=== PATIENT | male | born 1930 | race Caucasian/White ===

== ENCOUNTER 2016-10-05 16:30 | Inpatient (IN) | payer MEDICARE, OTHER ==
[~2016-10-05] VITALS: Ht 172.7 cm; Wt 73.2 kg
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
[~2016-10-05 16:30] MED LIST: APRESOLINE25 MG PO; ASPIRIN81 MG PO; ATENOLOL50 MG PO; EXELON4.6 MG/24 TD; GLUCOTROL10 M1; LIPITOR10 MG PO; SIMVASTATIN40 MG; ZESTRIL5 MG PO
[2016-10-05 16:53] VITALS: BP 149/87
[2016-10-05 17:32] LABS: BILIRUBIN NEGATIVE (NEGATIVE); BLOOD 2+ (NEGATIVE); CLARITY SL CLOUDY (CLEAR); COLOR YELLOW (YELLOW); GLUCOSE NEGATIVE (NEGATIVE); KETONE NEGATIVE (NEGATIVE); LEUKO ESTERASE 3+ (NEGATIVE); NITRITE POSITIVE (NEGATIVE); PROTEIN 1+ (NEGATIVE); UROBILINOGEN 0.2 E.U./dl (0.2-1.0)
[2016-10-05 17:36] LABS: BASO % 0.3 % (0.0-1.0); EOS # 0.1 10*3/uL (0.0-0.4); EOS % 0.9 % (1.0-4.0); HEMATOCRIT 42.2 % (42.0-52.0); HEMOGLOBIN 13.9 g/dl (14.0-18.0); LYMPH # 1.3 10*3/uL (1.3-4.4); LYMPH % 22.1 % (27.0-41.0); MEAN CORPUSCULAR HGB 30.6 pg (27.0-31.0); MEAN CORPUSCULAR HGB CONC 32.9 g/dl (33.0-37.0); MEAN PLATELET VOLUME 9.8 fl (9.6-12.3); MONO # 0.4 10*3/uL (0.1-1.0); MONO % 6.5 % (3.0-9.0); NEUT # 4.1 10*3/uL (2.3-7.9); PLATELET COUNT AUTOMATED 167 10*3/uL (130-400); RED BLOOD COUNT 4.54 10*6/uL (4.50-5.90); RED CELL DISTRI WIDTH 13.8 % (0-14.5); WHITE BLOOD COUNT 5.9 10*3/uL (4.8-10.8)
[2016-10-05 17:45] LABS: BACTERIA 2+; EPITHELIAL CELLS 0-2; URINE REFLEX COMMENT YES (NO)
[2016-10-05 17:54] LABS: ALBUMIN 3.3 gm/dl (3.1-4.5); BILIRUBIN, TOTAL 0.3 mg/dl (0.2-1.0); POTASSIUM 4.5 mmol/L (3.5-5.1); TOTAL PROTEIN 6.7 gm/dL (6.4-8.2)
[2016-10-05 20:25] VITALS: BP 136/74
[2016-10-05 20:30] VITALS: BP 136/74
[2016-10-06] VITALS: BP 109/68
[2016-10-06 06:29] LABS: BASO % 0.4 % (0.0-1.0); EOS # 0.1 10*3/uL (0.0-0.4); HEMATOCRIT 41.5 % (42.0-52.0); HEMOGLOBIN 13.5 g/dl (14.0-18.0); LYMPH # 1.5 10*3/uL (1.3-4.4); LYMPH % 30.7 % (27.0-41.0); MEAN CELL VOLUME 93.7 fl (80.0-94.0); MEAN CORPUSCULAR HGB 30.5 pg (27.0-31.0); MEAN CORPUSCULAR HGB CONC 32.5 g/dl (33.0-37.0); MEAN PLATELET VOLUME 9.7 fl (9.6-12.3); MONO # 0.4 10*3/uL (0.1-1.0); MONO % 8.7 % (3.0-9.0); NEUT # 2.7 10*3/uL (2.3-7.9); PLATELET COUNT AUTOMATED 160 10*3/uL (130-400); RED BLOOD COUNT 4.43 10*6/uL (4.50-5.90); RED CELL DISTRI WIDTH 13.8 % (0-14.5); WHITE BLOOD COUNT 4.7 10*3/uL (4.8-10.8)
[2016-10-06 07:00] LABS: MAGNESIUM 1.9 mg/dL (1.5-2.1); PHOSPHOROUS 2.8 mg/dL (2.5-4.9); POTASSIUM 4.2 mmol/L (3.5-5.1)
[2016-10-06 08:00] VITALS: BP 136/70
[2016-10-06 12:00] VITALS: BP 150/53
[2016-10-06 16:00] VITALS: BP 120/65
[2016-10-06 20:00] VITALS: BP 102/60
[2016-10-07 01:36] VITALS: BP 127/83
[2016-10-07 08:00] VITALS: BP 106/62
[2016-10-07 10:55] LABS: VITAMIN D, 25-HYDROXY 26.6 ng/mL (30-100)
[2016-10-07 12:00] VITALS: BP 110/76
[2016-10-07 16:00] VITALS: BP 117/57
[2016-10-07 20:00] VITALS: BP 84/55
[2016-10-08] VITALS: BP 115/83
[2016-10-08 07:06] LABS: BASO % 0.4 % (0.0-1.0); EOS # 0.3 10*3/uL (0.0-0.4); EOS % 5.4 % (1.0-4.0); HEMATOCRIT 40.6 % (42.0-52.0); HEMOGLOBIN 13.1 g/dl (14.0-18.0); LYMPH # 1.3 10*3/uL (1.3-4.4); LYMPH % 27.2 % (27.0-41.0); MEAN CELL VOLUME 93.8 fl (80.0-94.0); MEAN CORPUSCULAR HGB 30.3 pg (27.0-31.0); MEAN CORPUSCULAR HGB CONC 32.3 g/dl (33.0-37.0); MONO # 0.3 10*3/uL (0.1-1.0); MONO % 7.1 % (3.0-9.0); NEUT # 2.8 10*3/uL (2.3-7.9); NEUT % 59.7 % (47.0-73.0); PLATELET COUNT AUTOMATED 152 10*3/uL (130-400); RED BLOOD COUNT 4.33 10*6/uL (4.50-5.90); RED CELL DISTRI WIDTH 13.7 % (0-14.5); WHITE BLOOD COUNT 4.7 10*3/uL (4.8-10.8)
[2016-10-08 07:39] LABS: POTASSIUM 4.3 mmol/L (3.5-5.1)
[2016-10-08 08:00] VITALS: BP 128/60
[2016-10-08] MEDS ORDERED: CIPRO500 MG PO (10:16)
== END 2016-10-08 11:00 | disposition home health service (06) | DRG 698 ==
LOC: ED 16:30 → 4E 18:35 → EDHOLD 18:35 → 4E 18:58
PROVIDERS: Hospitalist; Internal Medicine; Nurse Practitioner Family; Psychiatry & Neurology Psychiatry
DX: T83.511A Infection and inflammatory reaction due to indwelling urethral catheter, initial encounter (principal); G93.41 Metabolic encephalopathy; N17.9 Acute kidney failure, unspecified; B96.1 Klebsiella pneumoniae [K. pneumoniae] as the cause of diseases classified elsewhere; F03.90 Unspecified dementia, unspecified severity, without behavioral disturbance, psychotic disturbance, mood disturbance, and anxiety; I10 Essential (primary) hypertension; E11.9 Type 2 diabetes mellitus without complications; F23 Brief psychotic disorder; Y83.8 Other surgical procedures as the cause of abnormal reaction of the patient, or of later complication, without mention of misadventure at the time of the procedure; Z87.891 Personal history of nicotine dependence; Y92.89 Other specified places as the place of occurrence of the external cause; Z79.899 Other long term (current) drug therapy; Z87.828 Personal history of other (healed) physical injury and trauma; Z90.49 Acquired absence of other specified parts of digestive tract; Z88.8 Allergy status to other drugs, medicaments and biological substances

== ENCOUNTER 2016-10-08 11:04 | Inpatient (IN) | payer MEDICARE, OTHER ==
[~2016-10-08] VITALS: Ht 172.7 cm; Wt 73.0 kg
--- NOTE | ~2016-10-08 | PR ---
[place], [place] PROGRESS NOTE [id number] UN[facility] #: [id number] ROOM: 311 DOCTOR: MYCHAL PONCE MD BIRTHDATE: [birth year] DOS: 10/16/2016 CHIEF COMPLAINT: "I can't get this done out of here, what do I do." SUMMARY OF THE VISIT: The patient was interviewed as he sat in the group therapy room in a Lyla chair with a tray table on. He was fixated on attempting to get the tray off of the chair and was repeatedly shaking it. He was, however, in a pleasant mood and as I approached and engaged him, he laughed several times about trying to remove the tray. He seemed in good spirits and he did not seem to be excessively agitated. Nurses report that overall there has been a steady trend in improvement in his overall disposition as such that he does redirect more readily. He is tolerating the current medication regimen well without any apparent side effects. There is no sedation or somnolence noted. MENTAL STATUS: He is alert and oriented to self, possibly place, certainly not time. Mood does seem to be trending towards euthymia. Affect is much more appropriate. There are no symptoms of heather or hypomania. There are no overt auditory or visual hallucinations. No delusions are present. Short-term memory is poor. Otherwise, he is intact. PLAN: His last valproic acid level was high therapeutic at 93.4. I will recheck a valproic acid level in the a.m. tomorrow to ensure that the level is not corrected above therapeutic. Continue to maintain the current psychotropic regimen at this point, maintain individual and group activities, returning him to the least restrictive environment when psychiatrically stable. MYCHAL PONCE MD CM:PNTRANS 1 5 MYCHAL PONCE MD 10/16/16906 interface
--- NOTE | ~2016-10-08 | PR ---
[place], [place] PROGRESS NOTE NAME: RAHEEM SONI UNIT #: [id number] ROOM: 311 DOCTOR: MYCHAL PONCE MD BIRTHDATE: [birth year] DOS: 10/17/2016 CHIEF COMPLAINT: "I guess I am ready for breakfast." SUMMARY OF THE VISIT: The patient was interviewed as he was propelling his wheelchair in the thomas. He smiled as I approached and went to shake my hand. He was much more pleasant in conversation, although he continues to be grossly confused and has a hard time stringing in entire sentence together without trailing into nonsensical gibberish. Nurses report, he has been much more pleasant and redirectable. MENTAL STATUS: He is alert and oriented to person, possibly place, certainly not time. Mood does seem to be trending towards euthymia. Affect is more appropriate. His responses tend to be short and simple at times inappropriate to the questions asked of him. There is no hypomania or heather. There are no overt auditory or visual hallucinations noted. No voice delusions or paranoia. Short-term memory is exceedingly poor. PLAN: I will maintain his current psychotropic regimen. His valproic acid level obtained this morning is therapeutic at 89.3, so I will maintain the Depakote level as is. Maintain the current dose of Exelon and Namenda. Continue to engage in individual and calderon milieu activity. Finalizing discharge plans and returning to the least restrictive environment when psychiatrically stable. MYCHAL PONCE MD CM:PNTRANS [id number] MYCHAL PONCE MD 10/17/16 0906 interface
--- NOTE | ~2016-10-08 | PR ---
[place], [place] PROGRESS NOTE NAME: RAHEEM SONI UNIT #: [id number] ROOM: 311 DOCTOR: KEEGAN SINGLETON BIRTHDATE: [birth year] DOS: 10/14/2016 SUMMARY OF VISIT: The patient was assessed in the dining room where he was banging on the tray on his Lyla chair. Nursing notes that the afternoon Vistaril that I had ordered was helping with the , but that he did require Ativan last night because he became agitated and he continues to be agitated this morning. MENTAL STATUS: He is alert and oriented to name only. I had discontinued his Namenda couple days ago because I thought maybe it was contributing to some increased confusion, but he continues to talk nonsensically. His valproic acid level yesterday was 93.4, so it is in the therapeutic range. PLAN: I will add Vistaril q.a.m. dose of 50 mg to see if I can take the edge off there without causing sedation. There is no sedation on this gentleman right now and let us see how he responds to the Vistaril and I can adjust accordingly. PAN SINGLETON CNP CM:PNTRANS [id number] KEEGAN SINGLETON 10/14/16 1220 interface
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
--- NOTE | ~2016-10-08 | PR ---
[place], [place] PROGRESS NOTE NAME: RAHEEM SONI UNIT #: [id number] ROOM: 311 DOCTOR: KEEGAN SINGLETON BIRTHDATE: [birth year] DOS: 10/15/2016 SUMMARY OF VISIT: The patient was assessed in the dining room where he was sitting quietly and comfortably in the Lyla chair in front of the TV. He smiled, still talked gibberish, but no agitation, no banging of the tray, no trying to get out of the Lyla chair. Nursing notes since adding the a.m. dose of the Vistaril yesterday, the patient has been much better. He still has issues in the afternoon, but he does have an afternoon dose of Vistaril of help to him. MENTAL STATUS: He is alert to name only. No overt signs of auditory or visual hallucinations. Since he is talking gibberish, I do not know if he is actually having delusions or paranoia. PLAN: I want to continue with the a.m. dose, monitor for sedation and go from there. PAN SINGLETON CNP CM:PNTRANS [id number] KEEGAN SINGLETON 10/16/16 0114 interface
--- NOTE | ~2016-10-08 | PN ---
[place], [place] PROGRESS NOTE [id number] UN[facility] #: [id number] ROOM: 311 DOCTOR: MYCHAL PONCE MD BIRTHDATE: [birth year] DATE: 10/13/16 INTERVAL NOTE CHIEF COMPLAINT: "Morning." SUMMARY OF THE VISIT: The patient was interviewed or attempted to be interviewed as he was resting in a Lyla chair in the dining area. He was rather somnolent on approach and I was able to awaken him enough for him to mouth the words morning, but he nodded back off into sleep thereafter. Nurses report that he had a horrible night, sundowning horribly, becoming verbally and physically aggressive requiring 2 p.r.n. interventions with intramuscular Ativan. The first intramuscular injection did little to nothing, but by the time he had the 2nd, it did decrease his agitation. Nurses report that he also tends to respond more favorably to women than he does to men and with men, he becomes much more confrontational and verbally and physically combative. This morning, my examination is limited due to the somnolence left over from the Ativan that he received last night. MENTAL STATUS: It is limited due to the fact that he is somewhat somnolent. He is at least alert and oriented to self. I could not assess much further because of that. PLAN: His valproic acid level is therapeutic at 93.4, so I will maintain the current level. I will go ahead and increase Exelon patch from 9.5 mg daily to 13.3 mg daily. His Namenda has been discontinued due to the possibility of it causing confusion, so I will continue to monitor for improvement. We will monitor to see if his sundowning continues to be problematic and if it does, we will address this accordingly with a medicine at night. He may require atypical antipsychotic to decrease the overall combativeness and at this point, I would strongly recommend the family that he is not placed at home, but rather placed into a long-term care facility to further monitor and assess his behavior. We will continue to engage him in individual and calderon milieu activity, returning to the least restrictive environment when stable. MYCHAL PONCE MD CM:PNTRANS [id number] 1415 MYCHAL PONCE MD 10/16/16 1416 HARLEY MATA MIS.R
--- NOTE | ~2016-10-08 | PN ---
[place], [place] PROGRESS NOTE NAME: RAHEEM SONI UNIT #: [id number] ROOM: 311 DOCTOR: KEEGAN SINGLETON BIRTHDATE: [birth year] DATE: 10/11/16 CHIEF COMPLAINT: "Good morning." SUMMARY OF VISIT: The patient was interviewed in the dining room, where he has finished up breakfast. He was fairly nonsensical, jumping from conversation to conversation. His responses to my questions were inappropriate as far as having nothing to do with the questions I asked. He did have an episode of severe sundowning last night around 5:30. Ativan seems to be ineffective, eventually requiring I believe a Geodon injection. MENTAL STATUS: He is alert and oriented to self only, I do not think place, time anything else. I do not think he is having overt signs of auditory or visual hallucinations, maybe some delusions, no paranoia, very poor short term memory. PLAN: He was started on Namenda yesterday. I am going to leave this alone and the Exelon alone. The goal would be to quickly titrate this up to the maximum dose. He is currently on Depakote and has not been on long enough prior. Order a valproic acid level tomorrow to be evaluated over the weekend. I am going to [facility] if [facility]il can head off the sundowning and have a better effect in his system instead of the Ativan. We can try to redirect as much as possible. It does appear that he has urinary tract infection and that the hospitalists are treating that. We will continue to try to engage in individual and calderon milieu therapy and discharge once stable. KEEGAN SINGLETON CM:PNTRANS 46 KEEGAN SINGLETON 10/16/161446 HARLEY MATA.MAGGIER
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
--- NOTE | ~2016-10-08 | PR ---
[place], [place] PROGRESS NOTE NAME: RAHEEM SONI UNIT #: [id number] ROOM: 311 DOCTOR: KEEGAN SINGLETON BIRTHDATE: [birth year] DOS: 10/12/2016 SUMMARY OF VISIT: The patient was assessed in the dining room. He is much more alert; however, he seems much more confused. He is alert, energetic, good eye contact. From a medical standpoint, seems clear, but he was actually talking gibberish to me. Nurses stated that he has refusing a.m. care, a.m. meds. He could not track my conversation even respond appropriately to my questions with simple yes or no's. MENTAL STATUS: He is alert and oriented, I think to self, nothing else. I did discuss the situation with Dr. Tinoco. The Namenda was just started on the and a few rare cases we have seen increased confusion with the use of Namenda so we are going to pull away on that right now. PLAN: I am going to discontinue the Namenda. I am going to check a valproic acid level tomorrow. Let see how he does over the next 24 hours and then we can go from there. PAN SINGLETON CNP CM:PNTRANS [phone] KEEGAN SINGLETON 10/12/16 1217 interface
--- NOTE | ~2016-10-08 | PN ---
[place], [place] PROGRESS NOTE NAME: RAHEEM SONI UNIT #: [id number] ROOM: 311 DOCTOR: KEEGAN SINGLETON BIRTHDATE: [birth year] DATE: 10/11/16 CHIEF COMPLAINT: "Good morning." SUMMARY OF VISIT: The patient was interviewed in the dining room, where he has finished up breakfast. He was fairly nonsensical, jumping from conversation to conversation. His responses to my questions were inappropriate as far as having nothing to do with the questions I asked. He did have an episode of severe sundowning last night around 5:30. Ativan seems to be ineffective, eventually requiring I believe a Geodon injection. MENTAL STATUS: He is alert and oriented to self only, I do not think place, time anything else. I do not think he is having overt signs of auditory or visual hallucinations, maybe some delusions, no paranoia, very poor short term memory. PLAN: He was started on Namenda yesterday. I am going to leave this alone and the Exelon alone. The goal would be to quickly titrate this up to the maximum dose. He is currently on Depakote and has not been on long enough prior. Order a valproic acid level tomorrow to be evaluated over the weekend. I am going to add [facility] if the Vistaril can head off the sundowning and have a better effect in his system instead of the Ativan. We can try to redirect as much as possible. It does appear that he has urinary tract infection and that the hospitalists are treating that. We will continue to try to engage in individual and calderon milieu therapy and discharge once stable. KEEGAN SINGLETON CM:PNTRANS 1448 KEEGAN SINGLETON 10/16/16 1449 HARLEY MATA.MAGGIER
--- NOTE | ~2016-10-08 | PR ---
[place], [place] PROGRESS NOTE NAME: RAHEEM SONI UNIT #: [id number] ROOM: 311 DOCTOR: MYCHAL PONCE MD BIRTHDATE: [birth year] DOS: 10/10/2016 CHIEF COMPLAINT: "I want to get up for breakfast." SUMMARY OF THE VISIT: The patient was interviewed or attempted to be interviewed as he was getting out of bed with the nursing students assistance. He did engage briefly in conversation telling me he wanted to get up after that as I attempted to reengage him in conversation, he was most fixated on attempting to stand and utilizing their assistance in order to get up and he did not respond to me further. Nurses report that he continues to exhibit some mood lability worse in the late afternoon or early evening hours, but does seem to be slowly trending toward improvement. MENTAL STATUS: Limited by his lack of cooperation. He is at least oriented to self. It is unclear if he realizes he is in the hospital and he is certainly not oriented to time. Mood this morning seems to be still somewhat labile and affect at times is inappropriate. His responses tended to be short and terse. Overall, there is no hypomania or heather. There are no overt auditory or visual hallucinations noted. Memory; For short term events remains poor. PLAN: I will maintain his current psychotropic regimen adding Namenda 5 mg daily to augment the effectiveness of the Exelon patch. Maintain the Depakote for mood stability and to decrease impulsivity, engage in individual and calderon milieu activity with the ultimate plan to return to the least restrictive environment when stable. MYCHAL PONCE MD CM:PNTRANS 1 1 MYCHAL PONCE MD 10/10/16901 interface
[~2016-10-08 11:04] MED LIST changes: +CIPRO500 MG PO
[2016-10-08 12:38] VITALS: BP 116/61
[2016-10-08 20:00] VITALS: BP 124/66
[2016-10-09 06:54] LABS: ALBUMIN 3.4 gm/dl (3.1-4.5); BILIRUBIN, TOTAL 0.4 mg/dl (0.2-1.0); POTASSIUM 4.2 mmol/L (3.5-5.1); TOTAL PROTEIN 6.9 gm/dL (6.4-8.2)
[2016-10-09 07:00] LABS: THYROID STIM HORMONE (HS) 2.32 uIU/ml (0.358-4.75)
[2016-10-09 07:24] VITALS: BP 149/79
[2016-10-09 20:00] VITALS: BP 111/69
[2016-10-10 07:58] VITALS: BP 104/56
[2016-10-10 20:00] VITALS: BP 135/83
[2016-10-11 07:53] VITALS: BP 104/70
[2016-10-11 19:48] VITALS: BP 111/58
[2016-10-12 07:36] VITALS: BP 116/72
[2016-10-12 20:00] VITALS: BP 118/58
[2016-10-13 08:00] VITALS: BP 112/82
[2016-10-13 20:00] VITALS: BP 126/69
[2016-10-14 07:38] VITALS: BP 136/83
[2016-10-14 21:46] VITALS: BP 123/74
[2016-10-15 07:50] VITALS: BP 125/77
[2016-10-15 19:59] VITALS: BP 153/73
[2016-10-16 07:49] VITALS: BP 128/58
[2016-10-16 19:49] VITALS: BP 112/54
[2016-10-17 20:00] VITALS: BP 123/74
[2016-10-18] MEDS ORDERED: DIVALPROEX SOD250 MG PO (07:54)
[2016-10-18] MEDS ORDERED: EXELON13.3 MG/21 T (07:54)
[2016-10-18] MEDS ORDERED: HYDROXYZINE PAM25 M1 PO ×2 (07:54)
[2016-10-18] MEDS ORDERED: DIVALPROEX SOD500 MG PO (07:54)
[2016-10-18 08:08] VITALS: BP 118/50
== END 2016-10-18 10:00 | disposition other institution (70) | DRG 56 ==
LOC: 3N 11:04
PROVIDERS: Nurse Practitioner Adult Health
DX: G30.1 Alzheimer's disease with late onset (principal); G93.41 Metabolic encephalopathy; E87.0 Hyperosmolality and hypernatremia; E11.65 Type 2 diabetes mellitus with hyperglycemia; F23 Brief psychotic disorder; N30.00 Acute cystitis without hematuria; F02.80 Dementia in other diseases classified elsewhere, unspecified severity, without behavioral disturbance, psychotic disturbance, mood disturbance, and anxiety; B37.9 Candidiasis, unspecified; I10 Essential (primary) hypertension; Z96.659 Presence of unspecified artificial knee joint; F63.9 Impulse disorder, unspecified; Z90.49 Acquired absence of other specified parts of digestive tract; Z87.891 Personal history of nicotine dependence; Z88.8 Allergy status to other drugs, medicaments and biological substances; Z79.2 Long term (current) use of antibiotics